=== PATIENT | male | born 1940 ===

== ENCOUNTER 2017-08-14 10:29 | Inpatient (IN) | payer OTHER, BC ==
[2017-08-15] MEDS ORDERED: BISACODYL 10 MG SUPP PR PRN (09:13)
[2017-08-16] MEDS ORDERED: ONDANSETRON DISINTEGRATING 4 MG TAB PO PRN (15:22)
[2017-08-16] MEDS: ENOXAPARIN 30 MG/0.3 ML SYR SC SCH ×2 (15:24→20:14)
[2017-08-16] MEDS ORDERED: SCOPOLAMINE HYDROBROMIDE 1 MG/3 DAYS PATCH TD SCH (15:30)
[2017-08-16] MEDS: FERROUS SULFATE 325 MG TAB PO SCH ×2 (16:14→21:44)
[2017-08-16] MEDS: IBUPROFEN 600 MG TAB PO PRN (20:13)
[2017-08-16] MEDS: SENNOSIDES/DOCUSATE SODIUM TAB PO SCH (20:14)
[2017-08-16] MEDS: POLYETHYLENE GLYCOL 3350 17 GM PKT PO PRN (20:14)
[2017-08-16] MEDS: MELATONIN 3 MG TAB PO PRN (20:14)
[2017-08-16] MEDS: ACETAMINOPHEN 325 MG TAB PO PRN (21:54)
[2017-08-16] MEDS: METAXALONE 800 MG TAB PO SCH (21:55)
[2017-08-16] MEDS: PATCH REMOVAL 1 EA PATCH TD SCH (21:56)
[2017-08-16] MEDS ORDERED: LIDOCAINE 5% 1 EA PATCH TD ONE (23:36)
[2017-08-17] MEDS: IBUPROFEN 600 MG TAB PO PRN ×4 (02:15→21:29)
[2017-08-17] MEDS: METAXALONE 800 MG TAB PO SCH (05:30)
[2017-08-17] MEDS: ACETAMINOPHEN 325 MG TAB PO PRN ×4 (06:22→21:30)
[2017-08-17] MEDS ORDERED: LIDOCAINE 5% 1 EA PATCH TD SCH (09:00)
[2017-08-17] MEDS: ENOXAPARIN 30 MG/0.3 ML SYR SC SCH ×2 (09:32→21:27)
[2017-08-17] MEDS: FERROUS SULFATE 325 MG TAB PO SCH (09:33)
[2017-08-17] MEDS: SENNOSIDES/DOCUSATE SODIUM TAB PO SCH ×2 (09:33→21:28)
[2017-08-17] MEDS: POLYETHYLENE GLYCOL 3350 17 GM PKT PO PRN (09:33)
[2017-08-17] MEDS ORDERED: LIDOCAINE 5% 1 EA PATCH TD PRN (12:07)
--- NOTE | 2017-08-17 12:29 | PDOREHIP ---
Admission [facility] - Admission - 3 Day Assessment Period Admission Date/Day 1: 08/16/17 Day 2: 08/17/17 Day 3: 08/18/17 - Active Diagnoses Comorbidities and Co-existing Conditions at Admission: 43389. None of the Above - Skin Conditions Unhealed Pressure Ulcer (1 or more/Stage 1 or >)-Admission: 0. No Discharge [facility] - Discharge - 3 Day Assessment Period 2 Days Prior to Anticipated Discharge Date: 08/19/17 1 Day Prior to Anticipated Discharge Date: 08/20/17 Anticipated Discharge Date: 08/21/17
--- NOTE | 2017-08-17 13:09 | GHP ---
[f rep st] HISTORY AND PHYSICAL POST ADMISSION PHYSICIAN EVALUATION AND REHABILITATION TREATMENT PLAN. DATE OF ADMISSION: 08/16/2017 DATE OF EVALUATION: 08/17/2017. TIME OF EVALUATION: 0935. REFERRING FACILITY: [facility] ([place], [place]). REFERRING PHYSICIAN: Dr. Fritz IMPAIRMENT GROUP: 8.11. DATE OF ONSET: 08/09/2017. CONSULTING PHYSICIANS: He was seen in consultation by the Trauma Surgery service, including Dr. Tuttle. REHABILITATION DIAGNOSIS: Debility, status post right hip acetabular fracture and open reduction and internal fixation. ETIOLOGIC DIAGNOSIS: Unilateral hip fracture. DATE OF SURGERY: 08/10/2017. 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 He fell and suffered a right acetabular fracture. He was helmeted and there was no loss of consciousness. He was initially taken to [facility] and subsequently transferred to [facility] ([place], [place]). He had ORIF of a complex right pamela-pelvic and acetabular fracture on 08/10/2017. Hospital course was complicated by blood loss anemia with a lorraine hemoglobin of 7.2 and a postoperative ileus, which eventually resolved. He was participating in therapies and ready for rehabilitation. He is to maintain touchdown weightbearing for approximately 6 weeks from the date of surgery. Other studies and labs in the hospital: I do not have a complete report. His renal function and electrolytes were essentially within normal limits. He had considerable blood loss from a normal hemoglobin to a hemoglobin of 7.2. He was placed on iron replacement, so he may have had a diagnosis of iron deficiency along with his blood loss. PRECAUTIONS: He is a fall risk. He has orthopedic precautions of touch down weightbearing on the right lower extremity. ACTIVE COMORBIDITIES: He has no active tier 1, tier 2 or tier 3 comorbidities. PAST MEDICAL HISTORY: 1. Prostate cancer. 2. Bilateral inguinal hernias. PAST SURGICAL HISTORY: He has had a prostatectomy and he has had bilateral inguinal hernia repair. PREHOSPITAL MEDICATIONS: I do not have a list of his medications from prior to his hospitalization. ADMISSION MEDICATIONS: 1. Senna/docusate 1 p.o. twice daily. 2. Scopolamine patch transdermal q.72 hours. 3. Polyethylene glycol 17 g p.o. daily. 4. Ondansetron 4 mg p.o. q.4 hours p.r.n. 5. Lidocaine patch two each, apply to painful areas of right hip daily. 6. Ibuprofen 600 mg p.o. q.6 p.r.n. 7. Ferrous sulfate 325 mg p.o. three times daily. 8. Metaxalone 800 mg p.o. q.8 hours. ALLERGIES: There are no known drug allergies. He is allergic to topical benzoin, which causes a rash and itch. FAMILY HISTORY: Noncontributory. PSYCHOSOCIAL HISTORY: He is . He lives with his in [place]. 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 He has a home at [place], and his daughter lives in [place]. He is a nonsmoker. REVIEW OF SYSTEMS: He reports bowel movement this morning after being treated with a bisacodyl suppository. He has had low-level nausea, which has resolved after the bowel movement. He has a reduced appetite, but knows that he needs to eat so he was able to eat his full breakfast this morning. Pain is adequately controlled. He has no cough or dyspnea. No fevers or chills. No palpitations or chest pain. No dysuria or urinary frequency. No joint swelling or joint pain, other than the right hip. He has noticed swelling to the right thigh. There is no skin rash or skin breakdown. Otherwise, a 10- point review of systems is negative. PHYSICAL EXAM: VITAL SIGNS: Blood pressure is 101/61, heart rate is 67, respiratory rate is 14, oxygen saturation is 95% on room air, temperature is 36.5 degrees centigrade. His weight is 88.6 kg for a body mass index of 24.4. GENERAL: This is a well-nourished, well-developed man, looks younger than his chronologic age, cooperative and in no acute distress. HEENT: Extraocular movements are intact. Pupils are equal, round, and reactive to light. Mucous membranes are moist. Dentition is in good condition. NECK: Supple. HEART: Regular rate and rhythm, with no murmurs, rubs, or gallops. LUNGS: Clear to auscultation bilaterally. ABDOMEN: Soft, nontender, mildly distended, with normoactive bowel sounds. EXTREMITIES: There is no cyanosis, clubbing, or edema. His right thigh is larger than his left thigh. There is no tenderness and no pitting edema. NEUROLOGIC: He is alert and oriented x3. Cranial nerves 2-12 are grossly intact. There is no focal weakness. Sensation is intact to light touch. SKIN: There is an incision across the anterior and right lateral pelvis with multiple dev. It is clean, dry and intact, with no drainage and no erythema. CURRENT LEVEL OF FUNCTION: Per the preadmission screen, regarding diet, feeding , and swallowing: He was on a regular diet and he was independent with eating. Grooming required minimal assist with standing. Bathing required minimal assist. Dressing, upper body required setup and lower body required minimal assist. Toileting required minimal assist. Bed mobility required moderate assist. Transfers were accomplished with contact guard assist using a front- wheeled walker. His balance was poor. His endurance was poor. He was able to ambulate 50 feet with minimal assist and was compliant with touchdown weightbearing. IMPRESSION: This patient is a 77-year-old man who suffered an unfortunate accident colliding with a snowboarder while skiing and had a right acetabular and pelvic fracture. He underwent ORIF on 08/10/2017 at [facility]. Postop course was complicated by postoperative anemia and an ileus. Pain was effectively controlled with ibuprofen. He was medically stabilized, participating in therapies and appropriate for inpatient rehabilitation. PATIENT GOALS: His goal is to complete a rehabilitation stay and then return home to his daughter's home in [place], with home healthcare and durable medical equipment as needed, to be determined during his rehab stay. For a safe discharge, it is expected he will achieve modified independence with mobility, self-care and be medically stable. He will have medication education. He will be able to maintain touchdown weightbearing on the right lower extremity. Ultimately after a stay at his daughter's home, his plan is to return home to [place]. He will have therapy with physical therapy and occupational therapy for 90 minutes per day per discipline on 5-6 days of the week. His expected duration of stay is 7 days. It is anticipated upon discharge that he will continue to benefit from home health services, including occupational therapy and physical therapy. PLAN: 1. Deficits to mobility and activities of daily living status post right acetabular fracture and ORIF, with touchdown weightbearing on the right lower extremity. PT and OT to optimize mobility and ADLs. He has made a good start with therapies. His initial functional independence measure is 85. He is able to make his transfers with contact guard assist using crutches. He was able to ambulate 100 feet with a front-wheeled walker and contact guard assist, or 50 feet with crutches and more assist. He is setup to supervision level with his activities of daily living, though bathing and car transfer have not yet been attempted. Continue PT and OT toward his goal of discharge to his daughter's home with modified independence. 2. Pain control is adequate with ibuprofen and acetaminophen. Nursing reports that he may not want to use the lidocaine patches and these will be changed to as needed. 3. Blood loss anemia. He has been prescribed ferrous sulfate 325 mg three times daily, but three times a day administration is not more effective than daily. This dosing will be reduced to daily. Will recheck CBC as well as a reticulocyte count tomorrow. Duration of iron replacement will be approximately 1 month. 4. Constipation status post postoperative ileus. This has responded to a bisacodyl suppository. Will continue polyethylene glycol and will increase the senna/docusate from one twice daily p.r.n. to one to two tablets twice daily p.r.n. Continue to monitor and expect normalization of bowels. 5. Prophylaxis. Following acetabular fracture and ORIF, his DVT risk is in the 10% to 61% range, and pulmonary embolus risk is in the 2% to 8% range. Prophylaxis was discussed with the patient. He agrees to continue enoxaparin. His likely duration is probably optimally approximately 4-5 weeks. Given that he is concurrently on ibuprofen, will initiate GI protection with ranitidine 150 mg twice daily. 6. Given his relatively high function and otherwise healthy state, he will likely have a shorter duration of stay than was initially anticipated prior to his admission. He will tentatively be discharged afternoon or evening , 08/20/2017, and he will follow up with orthopedic surgeon, Dr. Soren Duran at [facility] ([place], [place]) on 08/21/2017 at 1:00 p.m. /[id number]/MODL MTDD
[2017-08-17] MEDS ORDERED: BISACODYL 10 MG SUPP PR PRN (15:54)
[2017-08-17] MEDS ORDERED: MAGNESIUM HYDROXIDE 30 ML UDCUP PO PRN (15:55)
[2017-08-17] MEDS ORDERED: BISACODYL 10 MG SUPP PR ONE (16:10)
[2017-08-17 18:16] VITALS: O2SAT 96
[2017-08-17] MEDS: RANITIDINE HCL 150 MG/10 ML UDCUP PO SCH (21:27)
[2017-08-17] MEDS: MELATONIN 3 MG TAB PO PRN (21:39)
[2017-08-17] MEDS: PATCH REMOVAL 1 EA PATCH TD SCH (21:49)
[2017-08-18] MEDS: ACETAMINOPHEN 325 MG TAB PO PRN ×2 (01:37→10:47)
[2017-08-18] MEDS: IBUPROFEN 600 MG TAB PO PRN ×2 (03:31→10:48)
[2017-08-18 08:08] VITALS: BP 118/68; PULSE 72; RESP 16; TEMP 97.5
[2017-08-18] MEDS: ENOXAPARIN 30 MG/0.3 ML SYR SC SCH (08:31)
[2017-08-18] MEDS: POLYETHYLENE GLYCOL 3350 17 GM PKT PO PRN (08:33)
[2017-08-18] MEDS: RANITIDINE HCL 150 MG/10 ML UDCUP PO SCH (08:34)
[2017-08-18] MEDS: SENNOSIDES/DOCUSATE SODIUM TAB PO SCH (08:34)
[2017-08-18] MEDS ORDERED: FERROUS SULFATE 325 MG TAB PO SCH (09:00)
--- NOTE | 2017-08-18 09:01 | PDOREHIP ---
Admission [facility] - Admission - 3 Day Assessment Period Admission Date/Day 1: 08/16/17 Day 2: 08/17/17 Day 3: 08/18/17 - Skin Conditions Unhealed Pressure Ulcer (1 or more/Stage 1 or >)-Admission: 0. No Discharge [facility] - Discharge - 3 Day Assessment Period 2 Days Prior to Anticipated Discharge Date: 08/18/17 1 Day Prior to Anticipated Discharge Date: 08/19/17 Anticipated Discharge Date: 08/20/17 - Discharge Skin Conditions Unhealed Pressure Ulcer (1 or more/Stage 1 or >)-Discharge: 0. No
--- NOTE | 2017-08-18 09:17 | PDDCSUM ---
Discharge Summary Discharge Summary: Name: José Antonio Holman Admission date: 08/16/2017 Discharge date: 08/18/2017 anticipated Discharging physician: Todd Washington MD Admitting diagnosis: Right acetabular fracture, impairment group 8.11 Discharge diagnosis: Same Comorbid diagnoses: Postoperative pain, blood-loss anemia, constipation status post postoperative ileus, prostate cancer history Consultations: physical therapy, occupational therapy, speech language pathology , social work, dietary Procedures: None Reason for admission: Please see the full history and physical by Dr. Soler dated 08/17/2017 for full details. 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 He had ORIF by Dr. Duran at [facility]. Weightbearing precautions include toe-touch weight-bearing on the right lower extremity for 6 weeks from the date of surgery. Rehabilitation course: He made very rapid progress after admission to inpatient rehabilitation. He had no complications and his medical issues were stable. Pain control was adequate with ibuprofen and acetaminophen. He was taking iron for blood loss anemia. Constipation responded with a bisacodyl suppository. DVT prophylaxis in the form of low molecular weight heparin will be continued after discharge to be further managed by his surgeon. He was started on ranitidine 150 mg twice a day because he was on ibuprofen. His functional status was essentially standby assistance to modified independent with mobility including stairs, using a walker and adhering to his weight- bearing precautions. He was also SBA to modified independent, occasionally needing some cuing, for his activities of daily living with assistive devices. We emphasized the importance of using assistive devices to prevent injury. He had no speech needs. Discharge plan: Discharge home with family locally in [place] and will ultimately discharged back to [place] where he lives. Medications at discharge: Acetaminophen 650 mg p.o. q.4 hours p.r.n. for pain Enoxaparin 30 mg subcutaneous twice a day for 6 days, to be continued further by his orthopedic surgeon as necessary Melatonin 3 mg tab, 6 mg p.o. at bedtime p.r.n. for insomnia Ranitidine 150 mg p.o. twice daily Ibuprofen 600 mg p.o. q.6 hours p.r.n. for pain Ferrous sulfate 325 mg p.o. three times daily Lidocaine 5% patch transdermal daily Ondansetron 4 mg p.o. q.4 hours p.r.n. for nausea Pending studies: None Issues to be addressed at follow-up: To follow up with his orthopedic surgeon regarding duration of low-molecular weight heparin, duration of weight-bearing precautions. Follow up: Follow up with primary care physician shortly after discharge, has an appointment scheduled with his orthopedic surgeon Dr. Duran on 08/20/2017. Today's update: Patient doing extremely well, tolerating therapies well and made excellent progress. Discussed case with therapist who felt comfortable with him discharging home with family assistance. Answered questions, discussed the importance of continuing Lovenox injections for DVT prophylaxis given high risk after orthopedic surgery. Plan to continue that at least through his next appointment with his orthopedic surgeon and the decision can be made to continue or discontinue Low molecular weight heparin with his surgeon. Vital signs are stable, exam showed lungs are clear, cardiac was regular rate rhythm and peripheral pulses were 2+. No swelling in the lower limbs, no Homans and no calf tenderness. A total of 40 min was spent in the care of the patient today the majority of which was spent in the counseling and coordination of care regarding discharge planning.
[2017-08-18 10:40] LABS: HEMATOCRIT 25.4 % (40.0-51.0); HEMOGLOBIN 8.6 g/dL (13.7-17.5)
== END 2017-08-18 16:27 | disposition home or self-care (01) | DRG 561 ==
LOC: BREH 08-16 13:35
PROVIDERS: ADMIT Internal Medicine; ATTEND Internal Medicine
PROC: F07Z5FZ Bed Mobility Treatment using Assistive, Adaptive, Supportive or Protective Equipment (ICD-10-PCS; principal; 2017-08-16)
PROC: F07Z8FZ Transfer Training Treatment using Assistive, Adaptive, Supportive or Protective Equipment (ICD-10-PCS; principal; 2017-08-16)
DX: Z47.89 Encounter for other orthopedic aftercare (principal); S32.402D Unspecified fracture of left acetabulum, subsequent encounter for fracture with routine healing; W03.XXXD Other fall on same level due to collision with another person, subsequent encounter; Y93.23 Activity, snow (alpine) (downhill) skiing, snowboarding, sledding, tobogganing and snow tubing; D50.0 Iron deficiency anemia secondary to blood loss (chronic); K59.00 Constipation, unspecified; Z85.46 Personal history of malignant neoplasm of prostate
CPT/HCPCS: 97110-GP; 97116-GP; 97161-GP; 97165-GO; 97530-GO; 97530-GP; 97535-GO; J1650